=== PATIENT | female | born 1990 | race Caucasian/White ===

== ENCOUNTER 2021-04-15 17:47 | Emergency (ER) | payer OTHER, BC, SELFPAY ==
--- NOTE | ~2021-04-15 | CT_ITS ---
EXAMINATION: CT cervical spine wo con DATE: 04/15/2021 20:22 INDICATION: Neck pain TECHNIQUE: Computed tomography (CT) of the cervical spine was performed without intravenous contrast. The dose-length product (DLP) was 493.77 mGy-cm. Automated exposure control and iterative reconstruc tion technique were employed. COMPARISON: None FINDINGS: There is no fracture, dislocation, or subluxation. The vertebral body heights, alignment, a nd intervertebral disc spaces are normal. The paravertebral soft tissues are unremarkable. The odonto id is intact. IMPRESSION: 1. No acute osseous abnormality. Reviewed, dictated and finalized at location A.
--- NOTE | ~2021-04-15 | CT_ITS ---
EXAMINATION: CT lumbar spine wo con DATE: 04/15/2021 20:22 INDICATION: Low back pain TECHNIQUE: Computed tomography (CT) of the lumbar spine was performed without intravenous contrast. T he dose-length product (DLP) was 1191.46 mGy-cm. Iterative reconstruction was used. COMPARISON: None FINDINGS: . There is no fracture, dislocation, or subluxation. The vertebral body heights, alignment, and intervertebral disc spaces are normal. The paravertebral soft tissues are unremarkable. IMPRESSION: 1. No acute osseous abnormality. Reviewed, dictated and finalized at location A.
[2021-04-15 17:52] VITALS: BP 137/78; PULSE 94; RESP 18; TEMP 36.7; O2SAT 100
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
== END 2021-04-15 21:25 | disposition home or self-care (01) ==
PROVIDERS: Emergency Provider Emergency Medicine; PCP Internal Medicine
DX: S16.1XXA Strain of muscle, fascia and tendon at neck level, initial encounter (principal); V49.50XA Passenger injured in collision with unspecified motor vehicles in traffic accident, initial encounter
CPT/HCPCS: 72125; 72131; 81025; 99284

== ENCOUNTER 2021-10-11 00:59 | Inpatient (IN) | payer BC, SELFPAY ==
[2021-10-11] VITALS (14 sets, daily range): BP systolic 134–170; BP diastolic 73–90; PULSE 73–110; RESP 16–20; TEMP 36.2–36.6; O2SAT 95–99
--- NOTE | ~2021-10-11 | MR_ITS ---
EXAMINATION: MR MRCP wo/w con/w 3D wo ind DATE: 10/12/2021 12:56 INDICATION: Acute pancreatitis. TECHNIQUE: Magnetic resonance imaging (MRI) of the abdomen was performed without and with 20 mL Multi Miguel intravenous contrast. Sequences included coronal T2-weighted FS FSE, coronal T2-weighted FSE, a xial T1-weighted LAVA, coronal FS FIESTA, axial dual-echo T1-weighted SPGR, coronal lava-FLEX, sagitt al T2-weighted FSE, axial T2-weighted FSE, and axial DWI. Thick-slab T2-weighted FSE images were obta ined for magnetic resonance cholangiopancreatography (MRCP). Maximum intensity projection 3-D reconst ructions of the volumetric data were created by the technologist. Postcontrast sequences included cor onal LAVA-flex and time course of axial T1-weighted LAVA. COMPARISON: CT abdomen and pelvis 10/11/2021, ultrasound 10/11/2021 FINDINGS: ABDOMEN MRI: There are small pleural effusions. There is mild atelectasis in the lower lobes. The moreno er, gallbladder, and spleen are normal. The pancreas enhances throughout. There is fat stranding and free fluid around the pancreas, consistent with acute interstitial pancreatitis. There is a small vol ume of ascites. The adrenal glands and kidneys are normal. There are no dilated loops of bowel. There are no pathologically enlarged lymph nodes. There is subcutaneous edema in the body wall. ABDOMEN MRCP: The common duct is normal and measures 3 mm. No choledocholithiasis. IMPRESSION: 1. Acute interstitial pancreatitis. 2. No choledocholithiasis. 3. Small pleural effusions. 4. Small volume of ascites. Reviewed, dictated and finalized at location A. HANDLER
--- NOTE | ~2021-10-11 | US_ITS ---
EXAMINATION: US right upper quadrant DATE: 10/11/2021 08:13 INDICATION: Pancreatitis TECHNIQUE: Multiple grayscale and Doppler ultrasound images of the abdomen were obtained. COMPARISON: None available FINDINGS: Bowel gas obscures visualization of the pancreas. The visualized portions of the pancreas a re unremarkable. The liver is normal with normal echogenicity and echotexture. No surface nodularity. Normal hepatopetal flow in the main portal vein. The gallbladder is normal with no abnormal wall thi ckening, pericholecystic fluid or stones. The normal common bile duct measures 3 mm. There was no son ographic Ty sign. IMPRESSION: 1. Normal sonographic study of the gallbladder. Reviewed, dictated and finalized at location B. FACTURING SHIFT SUPERVISOR
--- NOTE | ~2021-10-11 | CT_ITS ---
EXAMINATION: CT abdomen pelvis w con DATE: 10/11/2021 04:01 INDICATION: Upper abdominal pain TECHNIQUE: Computed tomography (CT) of the abdomen and pelvis was performed with 100 cc Omnipaque 350 intravenous contrast. The dose-length product was 1577.74 mGy-cm. Automated exposure control and ite rative reconstruction technique were employed. COMPARISON: None. FINDINGS: Lung bases are unremarkable. Heart size normal. No significant pleural or pericardial effus ion. No significant vascular abnormality. No lymphadenopathy. There is thickening of the pancreas wit h surrounding fluid, consistent with pancreatitis. There is a 3 cm left adnexal cyst, likely ovarian. Nonobstructive bowel gas pattern. Normal appendix. No free air. Gallbladder is present. No lymphaden opathy. No acute osseous abnormality. IMPRESSION: 1. Acute pancreatitis with moderate peripancreatic fluid extending into the paracolic gutters. 2: 3 cm left adnexal cyst, likely ovarian. Reviewed, dictated and finalized at location A. L ASSEMBLER IMPRESSION: 1. Acute pancreatitis with moderate peripancreatic fluid extending into the par acolic gutters. 2: 3 cm left adnexal cyst, likely ovarian.
--- NOTE | 2021-10-11 02:27 | ED.GENADULT ---
HPI - General Adult General Chief complaint: Abdominal Pain Stated complaint: ABD pain, N/V Time Seen by Provider: 10/11/21 01:55 History of Present Illness HPI narrative: Patient is a 23-year-old female presents the emergency department with chief complaint of abdominal pain. Patient reports started having pain in the right upper quadrant reports that the pain does radiate mildly to the back reports is not improved by anything reports has had some nausea and vomiting with it as well. Patient reports she had no prior surgical history of the abdomen reports she did not eat anything different denies fever denies diarrhea. Related Data Home Medications Medication Instructions Recorded Confirmed bupropion HCl mg PO 10/11/21 10/11/21 cyclobenzaprine mg 10/11/21 escitalopram oxalate mg 10/11/21 Allergies Allergy/AdvReac Type Severity Reaction Status Date / Time Penicillins Allergy Intermediate Verified 03/23/10 22:36 Review of Systems Review of Systems: A 10 system review of systems was completed on the patient and is negative except for what is stated in the HPI. Nursing and ancillary documentation was reviewed. [facility] Past Medical History Medical History No active medical problems Social History Social History Substance use: never Gender identity (if verbalized by the patient): Female Exam Narrative: GENERAL: Well-appearing, well-nourished, and in no acute distress. HEAD: Normocephalic, atraumatic. EYES: PERRLA and EOMI. ENT: Nares clear, no rhinorrhea or epistaxis. Mucous membranes moist. NECK: Supple. CHEST: Clear to auscultation. No respiratory distress. HEART: Regular rate and rhythm. No murmur heard. Normal peripheral pulses. ABDOMEN: Soft, tender to palpation of the right upper quadrant, nondistended, normal active bowel sounds. EXTREMITIES: Normal range of motion. No edema. SKIN: Warm, dry, no rash. NEURO: No focal deficits. Alert and oriented x3. PSYCH: Normal mood and affect. Course Vital Signs Vital signs: Vital Signs Temperature 36.6 C 10/11/21 01:43 Pulse Rate 73 10/11/21 01:43 Respiratory Rate 18 10/11/21 01:43 Blood Pressure 165/89 H 11/12/21 01:43 Pulse Oximetry 97 10/11/21 01:43 Temperature 36.6 C 10/11/21 01:43 Pulse Rate 80 10/11/21 06:15 Respiratory Rate 18 10/11/21 06:15 Blood Pressure 153/78 H 10/11/21 06:15 Pulse Oximetry 98 10/11/21 06:15 Medical Decision Making Vital Signs Vital Signs: Vital Signs Temperature 36.6 C 10/11/21 01:43 Pulse Rate 73 10/11/21 01:43 Respiratory Rate 18 10/11/21 01:43 Blood Pressure 165/89 H 10/11/21 01:43 Pulse Oximetry 97 10/11/21 01:43 Temperature 36.6 C 10/11/21 01:43 Pulse Rate 80 10/11/21 06:15 Respiratory Rate 18 10/11/21 06:15 Blood Pressure 153/78 H 10/11/21 06:15 Pulse Oximetry 98 10/11/21 06:15 Lab Data Result diagrams: 10/11/21 03:00 10/11/21 03:00 Labs: Lab Results 10/11/21 10/11/21 10/11/21 Range/Units 03:00 03:00 03:44 WBC 16.2 H (4.5-10.0) K/mm3 RBC 5.05 (4.2-5.4) M/mm3 Hgb 14.0 (12.0-15.0) g/dL Hct 43.0 (37.0-47.0) % MCV 85.1 (80-100) fl MCH 27.7 (26-34) pg MCHC 32.6 (32-36) g/dl RDW 14.4 (11.5-14.5) % Plt Count 234 (150-375) k/mm3 MPV 11.6 H (7.4-10.4) fl Immature Gran % (Auto) 0.5 (0-0.5) % Neut % (Auto) 89.4 H (45.5-73.1) % Lymph % (Auto) 4.8 L (18.3-44.2) % [place] % (Auto) 5.0 (2.6-8.5) % Eos % (Auto) 0.1 (0-4.4) % Baso % (Auto) 0.2 (0.2-1.2) % Lymph # (Auto) 0.78 L (0.9-3.2) K/mm3 [place] # (Auto) 0.8 H (0.1-0.6) K/mm3 Eos # (Auto) 0.0 (0-0.3) K/mm3 Baso # (Auto) 0.0 (0.0-0.1) K/mm3 Abs Immat Gran (auto) 0.08 H (0.00-0.031) K/mm3 Absolute Neuts (auto) 14.5 H (1.3-6.7) K/mm
[2021-10-11] MEDS: SODIUM CHLORIDE 0.9% IV 1,000 ML 999 ML IV CONT (02:47)
[2021-10-11] MEDS: ONDANSETRON INJ 4 MG/2 ML VIAL IV PUSH ×5 (02:49→17:29)
[2021-10-11] MEDS: MORPHINE SULFATE (*CRX) 4 MG/ML INJ IV PUSH (02:51)
--- NOTE | 2021-10-11 03:02 | PC.NURSE ---
Pt unable to urinate at this time. Refusing straight catheter at this time. Urine cup at bedside.
[2021-10-11 03:27] LABS: Alanine Aminotransferase 231 U/L (4-35); Albumin Level 4.5 g/dL (3.5-5.1); Alkaline Phosphatase 117 U/L (38-126); Anion Gap 6 mmol/L (8-16); Aspartate Amino Transferase 281 U/L (14-36); Bilirubin,Total 0.7 mg/dL (0.2-1.3); Blood Urea Nitrogen 15 mg/dL (7-17); Calcium 9.1 mg/dL (8.4-10.2); Carbon Dioxide 28 mmol/L (22-30); Chloride 102 mmol/L (98-107); Estimated CRCL calculation 141 ml/min; Estimated Glomerular Filt Rate > 60; Glucose 183 mg/dL (65-110); Potassium 4.3 mmol/L (3.4-5.0); Sodium 136 mmol/L (137-145)
[2021-10-11] MEDS: HYDROmorphone HCL INJ (*CRX) 1 MG/ML SYR IV PUSH ×7 (03:39→22:42)
--- NOTE | 2021-10-11 03:47 | PC.NURSE ---
Pt to imaging at this time.
[2021-10-11 03:59] LABS: Add Urine Microscopic? YES; Appearance Urine Cloudy (Clear); Bilirubin Urine Negative (Negative); Blood Urine Negative (Negative); Color Urine Amber (Yellow); Glucose Urine UA Negative (Negative); Ketones Urine 1+ mg/dL (Negative); Leukocyte Esterase Ur 3+ LEU/UL (Negative); Mucus Urine Rare /lpf; Nitrate Urine Negative (Negative); Protein Urine 1+ mg/dL (Negative); Specific Grav Ur 1.019 (1.001-1.035); Squamous Epithelial Cell Urine Few /hpf (Few); Urobilinogen Urine Negative mg/dL (<2.0)
[2021-10-11 04:13] LABS: Basophils Percent Auto 0.2 % (0.2-1.2); Eosinophils Percent Auto 0.1 % (0-4.4); Immature Granulocyte Absolute 0.08 K/mm3 (0.00-0.031); Immature Granulocyte Percent A 0.5 % (0-0.5); Lymphocytes Absolute Auto 0.78 K/mm3 (0.9-3.2); Lymphocytes Percent Auto 4.8 % (18.3-44.2); Mean Corpuscular HGB Conc 32.6 g/dl (32-36); Mean Corpuscular Hemoglobin 27.7 pg (26-34); Mean Corpuscular Volume 85.1 fl (80-100); Mean Platelet Volume 11.6 fl (7.4-10.4); Monocytes Absolute Auto 0.8 K/mm3 (0.1-0.6); Neutrophils Absolute Auto 14.5 K/mm3 (1.3-6.7); Neutrophils Percent Auto 89.4 % (45.5-73.1); Platelet Count Result 234 k/mm3 (150-375); Red Blood Count 5.05 M/mm3 (4.2-5.4); Red Cell Distribution Width 14.4 % (11.5-14.5); White Blood Count 16.2 K/mm3 (4.5-10.0)
[2021-10-11 04:25] LABS: Lipase 31996 U/L (23-300)
[2021-10-11] MEDS: SODIUM CHLORIDE 0.9% IV 1,000 ML 125 ML IV CONT ×3 (07:04→23:00)
--- NOTE | 2021-10-11 07:19 | PM.IMHP ---
H&P: HPI History of Present Illness Date/Time: 10/11/21 07:19 This is a 23-year-old female without any significant prior medical history who presents the emergency department with chief complaint of abdominal pain. The patient was in her usual state of health until yesterday evening. She experienced 9-10 episode of vomiting, food at 1st, followed by bilious vomiting. Toward the end she had a few speckles of blood. She also endorses right upper quadrant pain radiating to the back reports is not improved by anything reports has had some nausea and vomiting with it as well. She denies nathan blood in the vomitus. Patient reports she had no prior surgical history of the abdomen reports she did not eat anything different denies fever denies diarrhea. On arrival to the emergency department the patient is hemodynamically stable and afebrile with the following vital Signs a temperature of 98.0? F, a pulse rate of 94, respiratory rate of 18, blood pressure 137/78, and pulse oximetry of 100% on room air. She was started on NPO, IV fluids and morphine 4 mg IV without significant improvement of her pain. She was switched to Dilaudid 1 mg IV q.4 with improvement. At the time of my my examination she rates her pain at 3/10. She denies any alcohol use. There is no history of gallstones. There is no family history of pancreatitis. Chief Complaint: Right upper quadrant pain, nausea and vomiting. Review of Systems Review of Systems: All systems reviewed & are unremarkable except as noted in HPI and below Constitutional: Constitutional: Reports as per HPI Eyes: Eyes: Reports as per HPI Cardiovascular: Cardiovascular: Reports as per HPI Respiratory: Respiratory: Reports as per HPI Gastrointestinal: Gastrointestinal: Reports as per HPI, Reports abdominal pain, Denies diarrhea, Reports nausea and Reports vomiting Comments: right upper quadrant pain Genitourinary: Genitourinary: Reports no additional female genitourinary complaints and Reports as per HPI Musculoskeletal: Musculoskeletal: Reports no additional musculoskeletal complaints and Reports as per HPI Integumentary/Breasts: Skin/Breast: Reports system reviewed and no additional complaints, except as docu and Reports as per HPI Neurologic: Reports system reviewed and no additional complaints, except as documented and Reports as per HPI Psychiatric: Psychiatric: Reports no additional psychiatric complaints and Reports as per HPI [facility] Past Medical History Medical History No active medical problems Social History Social History Smoking status: Never smoker Alcohol intake: current Drinks per week: 1 Substance use: current Substance use type: does not use Gender identity (if verbalized by the patient): Female Spiritual care concerns: No Meds Home Medications and Allergies Home Medications Medication Instructions Recorded Confirmed Type bupropion HCl 150 mg PO DAILY 10/11/21 10/11/21 History escitalopram oxalate 10 mg PO HS 10/11/21 10/11/21 History spironolactone 50 mg PO HS 10/11/21 10/11/21 History Allergies Allergy/AdvReac Type Severity Reaction Status Date / Time Penicillins Allergy Intermediate Verified 03/23/10 22:36 Vital Signs Vital Signs - 24 hr 10/11/21 01:43 10/11/21 02:56 10/11/21 04:06 Temperature 97.8 F Pulse Rate 73 83 87 Respiratory Rate 18 18 17 Blood Pressure 165/89 H 151/80 H 161/81 H Pulse Oximetry 97 99 98 10/11/21 05:00 10/11/21 05:45 10/11/21 06:15 Temperature Pulse Rate 76 79 80 Respiratory Rate 18 16 18 Blood Pressure 170/83 H 152/73 H 153/78 H Pulse Oximetry 97 97 98 Exam Const: Other: Patient is in mild distress due to right upper quadrant pain. She seems uncomfortable. HENMT: Mouth: Yes moist mucous membranes Eyes: General: appearance normal, both eyes and all related structures Pupils: Equal, r
--- NOTE | 2021-10-11 07:49 | PC.NURSE ---
Gave report to Chanel LIRA no further questions or concerns
--- NOTE | 2021-10-11 07:57 | PC.NURSE ---
pt going to ultrasound will take up to 326 when done
--- NOTE | 2021-10-11 08:14 | PC.NURSE ---
Called and asked nickie Pringle to transport patient to 3rd floor after ultrasound, ultrasound refused, this RN will transport when patient returns
--- NOTE | 2021-10-11 08:35 | PC.NURSE ---
This patient, Hortencia Ruiz, was admitted to [facility] Surg Room 326-01. Patient/family oriented to hospital policies and general routines including ID bracelet, bed and alarms, visiting hours, pain management, procedures, bathroom and other care routines, personal items, smoking policy, room service/diet, and visiting hours. Information on how to activate the Rapid Response Team has been discussed. Patient/Family are encouraged to report perceived risks to care and to ask questions if they do not understand what they are told or what they should do.
[2021-10-11 09:51] LABS: Lipase 10133 U/L (23-300)
[2021-10-11 14:25] LABS: Lipase 7027 U/L (23-300)
[2021-10-11 14:51] LABS: Triglycerides 55 mg/dL (<150)
[2021-10-11 15:08] LABS: Amylase 1339 U/L (30-110)
[2021-10-11 16:55] LABS: Hemoglobin A1C 5.1 % (<5.7)
[2021-10-11 20:37] LABS: Hematocrit 43.2 % (37.0-47.0); Hemoglobin 13.9 g/dL (12.0-15.0); Mean Corpuscular HGB Conc 32.2 g/dl (32-36); Mean Corpuscular Hemoglobin 27.8 pg (26-34); Mean Corpuscular Volume 86.4 fl (80-100); Mean Platelet Volume 10.4 fl (7.4-10.4); Platelet Count Result 185 k/mm3 (150-375); Red Cell Distribution Width 14.6 % (11.5-14.5); White Blood Count 19.4 K/mm3 (4.5-10.0)
[2021-10-11 23:57] LABS: Anion Gap 8 mmol/L (8-16); Blood Urea Nitrogen 13 mg/dL (7-17); Calcium 8.4 mg/dL (8.4-10.2); Carbon Dioxide 27 mmol/L (22-30); Chloride 105 mmol/L (98-107); Estimated CRCL calculation 159 ml/min; Estimated Glomerular Filt Rate > 60; Glucose 115 mg/dL (65-110); Potassium 3.9 mmol/L (3.4-5.0); Sodium 140 mmol/L (137-145)
[2021-10-12] MEDS: HYDROmorphone HCL INJ (*CRX) 1 MG/ML SYR IV PUSH ×2 (01:41→20:27)
[2021-10-12] MEDS: HYDROmorphone HCL INJ (*CRX) 1 MG/ML SYR 2 MG IV PUSH ×4 (05:00→15:11)
[2021-10-12 05:47] VITALS: BP 126/66; PULSE 105; RESP 18; TEMP 36.8; O2SAT 93
[2021-10-12] MEDS: SODIUM CHLORIDE 0.9% IV 1,000 ML 125 ML IV CONT ×3 (06:22→23:18)
[2021-10-12 06:34] LABS: Hematocrit 39.4 % (37.0-47.0); Hemoglobin 12.3 g/dL (12.0-15.0); Mean Corpuscular HGB Conc 31.2 g/dl (32-36); Mean Corpuscular Hemoglobin 27.3 pg (26-34); Mean Corpuscular Volume 87.6 fl (80-100); Mean Platelet Volume 10.5 fl (7.4-10.4); Platelet Count Result 226 k/mm3 (150-375); Red Cell Distribution Width 14.7 % (11.5-14.5)
[2021-10-12 07:12] LABS: Amylase 660 U/L (30-110); Anion Gap 10 mmol/L (8-16); Blood Urea Nitrogen 14 mg/dL (7-17); Calcium 8.1 mg/dL (8.4-10.2); Carbon Dioxide 22 mmol/L (22-30); Chloride 107 mmol/L (98-107); Estimated CRCL calculation 183 ml/min; Estimated Glomerular Filt Rate > 60; Glucose 109 mg/dL (65-110); Potassium 3.9 mmol/L (3.4-5.0); Sodium 139 mmol/L (137-145)
[2021-10-12 07:30] LABS: Lipase 2545 U/L (23-300)
--- NOTE | 2021-10-12 11:04 | WPDGICN ---
Assessment and Plan Assessment and plan (1) Acute pancreatitis: Qualifiers: Acute pancreatitis complication: unspecified Pancreatitis type: unspecified pancreatitis type Qualified Code(s): K85.90 - Acute pancreatitis without necrosis or infection, unspecified Code(s): K85.90 - Acute pancreatitis without necrosis or infection, unspecified Status: Acute Assessment and Plan: no alcohol use, no previous history of GB disease with normal appearing ultrasound. will get MRP to check biliary system, microlithiasis she started using a new medication just few days ago- bupropion. Review of literature with few cases of pancreatitis but uncommon. continue with npo status, pain control and medical support (2) Nausea and vomiting in adult: Code(s): R11.2 - Nausea with vomiting, unspecified Status: Acute Assessment and Plan: antiemetics prn (3) Epigastric pain: Code(s): R10.13 - Epigastric pain Status: Acute Assessment and Plan: pain control (4) Elevated liver enzymes: Code(s): R74.8 - Abnormal levels of other serum enzymes Status: Acute Assessment and Plan: monitor check hepatitis panel probably from pancreatitis (5) Morbid (severe) obesity due to excess calories: Code(s): E66.01 - Morbid (severe) obesity due to excess calories Status: Acute (6) Anxiety: Code(s): F41.9 - Anxiety disorder, unspecified Status: Acute (7) Acne: Code(s): L70.9 - Acne, unspecified Status: Acute GI Consult Note Consult date/time: 10/12/21 11:04 Reason for consult: acute pancreatitis HPI: Hortencia Ruiz is a 31 year old female with history of anxity recently started on bupropion last Thursday, morbid obesity here with new onset of severe epigastric pain along with intractable nausea and vomiting. Never had similar episode and denies heavy drinking. Blood work in ER showed transaminases 200's, normal bili and AP. Diagnosed with pancreatitis with elevated enzymes. CT scan reviewed and showed acute pancreatitis with moderate peripancreatic fluid extending into the paracolic gutters. Ultrasound normal GB. Denies abdominal surgeries. She is npo, slightly better, on pain meds as needed. Review of Systems Constitutional: Constitutional: Denies chills Eyes: Eyes: Denies blurry vision ENT: Reports Normal hearing present Cardiovascular: Cardiovascular: Denies chest pain Respiratory: Respiratory: Denies dyspnea Gastrointestinal: Gastrointestinal: Reports abdominal pain, Reports nausea and Reports vomiting Genitourinary: Genitourinary: Denies hematuria Musculoskeletal: Musculoskeletal: Denies neck pain Integumentary/Breasts: Skin/Breast: Denies dry skin Neurologic: Denies headache(s) Psychiatric: Psychiatric: Denies behavioral changes [facility] Past Medical History Medical History (Updated 10/12/21 @ 11:12 by Carlo Barrett MD) Elevated liver enzymes Epigastric pain Morbid (severe) obesity due to excess calories Nausea and vomiting in adult No active medical problems Social History Social History Smoking status: Never smoker Alcohol intake: current Drinks per week: 1 Substance use: current Substance use type: does not use Gender identity (if verbalized by the patient): Female Spiritual care concerns: No Meds Home Medications and Allergies Home Medications Medication Instructions Recorded Confirmed Type bupropion HCl 150 mg PO DAILY 10/11/21 10/11/21 History escitalopram oxalate 10 mg PO HS 10/11/21 10/11/21 History spironolactone 50 mg PO HS 10/11/21 10/11/21 History Allergies Allergy/AdvReac Type Severity Reaction Status Date / Time Penicillins Allergy Intermediate Verified 03/23/10 22:36 Vital Signs Vital Signs - 24 hr 10/11/21 14:00 10/11/21 19:50 10/11/21 21:19 Temperature 97.9 F Pulse Rate 93 110 H 82 Resp
--- NOTE | 2021-10-12 11:31 | PM.IMPN ---
Progress Note: A&P Assessment and Plan (1) Acute pancreatitis: Qualifiers: Acute pancreatitis complication: unspecified Pancreatitis type: unspecified pancreatitis type Qualified Code(s): K85.90 - Acute pancreatitis without necrosis or infection, unspecified Code(s): K85.90 - Acute pancreatitis without necrosis or infection, unspecified Status: Acute Assessment and Plan: -Patient without family history of pancreatitis, gallstones or EtOH use presenting with severe right upper quadrant abdominal pain. -Lipase significantly elevated on arrival close to 32,000. Repeat lipase 5 hours later was 10,000. Repeat today 2545. -RUQ US normal -Patient was appropriately managed by NPO, IV fluids and pain management -Gastroenterology Dr. Kirkland was consulted and has ordered an MRCP to evaluate biliary system. -It is also noted that patient just started taking Wellbutrin this week, review of literature with a few cases of pancreatitis but uncommon. -Further management per GI. (2) Overweight: Code(s): E66.3 - Overweight Status: Acute Assessment and Plan: Calorie restriction diet and exercise. (3) Anxiety: Code(s): F41.9 - Anxiety disorder, unspecified Status: Acute Assessment and Plan: Resume home medication. (4) Depression: Code(s): F32.A - Depression, unspecified Status: Acute Assessment and Plan: Resume home medication. (5) Acne: Code(s): L70.9 - Acne, unspecified Status: Acute Assessment and Plan: Previously on spironolactone. Resume upon discharge. Subjective Date/time seen: 10/12/21 11:31 This is a 23-year-old female with hx of anxiety and depression who presented to the ED for acute onset epigastric pain, N/V and was subsequently admitted for pancreatitis. No hx of ETOH use, gallstone disease, or family hx of pancreatitis. Interval history: Pt states she is feeling better today but still having pain. She has 3/10 epigastric pain at rest and 9/10 with movement. She c/o pain to her sides and back from vomiting so forcefully yesterday. Nausea and vomiting have resolved. No diarrhea, constipation. States she felt warm early this morning but when they took her temperature it was normal. Review of Systems Review of Systems: General: +subjective fever, +bodyaches Eyes: Denies vision changes or eye pain ENT: Denies nasal congestion or sore throat Respiratory: Denies cough or shortness of breath Cardiovascular: Denies chest pain, palpitations, or lower extremity edema Gastrointestinal: + abdominal pain, no nausea or vomiting, no diarrhea Genitourinary: Denies dysuria or urinary frequency Musculoskeletal: + back pain, + muscle aches Neurological: Denies headache, paraesthesias, or motor weakness Integumentary: Denies rash or other skin lesions Exam Narrative: General: No acute distress, non toxic appearing, morbidly obese Eyes: PERRL, no scleral icterus HEENT: NCAT, external ears normal, MMM, normal pharynx Respiratory: No respiratory distress, Lungs CTA bilaterally, no wheezing Cardiovascular: RRR, no murmur Abdominal: Soft, +moderate epigastric tenderness, non distended, no rebound or guarding Musculoskeletal: Moves all 4 extremities, no edema Neurological: A/Ox3, speech normal, no facial asymmetry Skin: Warm, dry, no rashes Psychiatric: Normal affect, normal mood Objective Data Vital Signs Vital Signs: Vital Signs - 24 hr 10/11/21 14:00 10/11/21 19:50 10/11/21 21:19 Temperature 97.9 F Pulse Rate 93 110 H 82 Respiratory Rate 18 16 18 Blood Pressure 142/88 H Pulse Oximetry 96 98 96 10/11/21 22:00 10/12/21 05:47 Temperature 97.1 F L 98.3 F Pulse Rate 110 H 105 H Respiratory Rate 16 18 Blood Pressure 138/78 126/66 Pulse Oximetry 98 93 Intake/Output Intake/Output: Intake & Output 10/09/21 10/10/21 10/11/21 10/12/21 23:59 23:59 23:59 23:59 Intake Total 3
--- NOTE | 2021-10-12 12:01 | PC.NURSE ---
patient to [facility] via wheelchair
--- NOTE | 2021-10-12 12:57 | PC.NURSE ---
patient returning to floor from MRI
[2021-10-12 14:16] VITALS: BP 123/72; PULSE 104; RESP 12; TEMP 36.9; O2SAT 92
[2021-10-12] MEDS: MORPHINE SULFATE (*CRX) 4 MG/ML INJ IV PUSH (18:42)
[2021-10-12 20:00] VITALS: PULSE 108; RESP 20; O2SAT 90
[2021-10-12] MEDS: ESCITALOPRAM OXALATE 10 MG TABLET PO (20:22)
[2021-10-12 21:41] VITALS: BP 123/72; PULSE 108; RESP 20; TEMP 37.2; O2SAT 90
[2021-10-13] MEDS: HYDROmorphone HCL INJ (*CRX) 1 MG/ML SYR IV PUSH ×5 (01:51→20:23)
[2021-10-13 05:29] VITALS: BP 127/72; PULSE 103; RESP 20; TEMP 37.3; O2SAT 94
[2021-10-13] MEDS: HYDROmorphone HCL INJ (*CRX) 1 MG/ML SYR 2 MG IV PUSH (05:35)
[2021-10-13 06:32] LABS: Alanine Aminotransferase 79 U/L (4-35); Albumin Level 3.2 g/dL (3.5-5.1); Alkaline Phosphatase 67 U/L (38-126); Amylase 299 U/L (30-110); Anion Gap 7 mmol/L (8-16); Aspartate Amino Transferase 30 U/L (14-36); Bilirubin,Total 0.4 mg/dL (0.2-1.3); Blood Urea Nitrogen 12 mg/dL (7-17); Calcium 7.8 mg/dL (8.4-10.2); Carbon Dioxide 25 mmol/L (22-30); Chloride 103 mmol/L (98-107); Estimated CRCL calculation 159 ml/min; Estimated Glomerular Filt Rate > 60; Glucose 97 mg/dL (65-110); Lipase 803 U/L (23-300); Potassium 3.5 mmol/L (3.4-5.0); Sodium 135 mmol/L (137-145)
[2021-10-13 07:03] LABS: Basophils Absolute Auto 0.1 K/mm3 (0.0-0.1); Basophils Percent Auto 0.3 % (0.2-1.2); Eosinophils Absolute Auto 0.1 K/mm3 (0-0.3); Eosinophils Percent Auto 0.5 % (0-4.4); Hemoglobin 10.7 g/dL (12.0-15.0); Immature Granulocyte Absolute 0.08 K/mm3 (0.00-0.031); Immature Granulocyte Percent A 0.5 % (0-0.5); Lymphocytes Percent Auto 11.2 % (18.3-44.2); Mean Corpuscular HGB Conc 31.5 g/dl (32-36); Mean Corpuscular Hemoglobin 27.2 pg (26-34); Mean Corpuscular Volume 86.5 fl (80-100); Monocytes Absolute Auto 1.3 K/mm3 (0.1-0.6); Monocytes Percent Auto 8.3 % (2.6-8.5); Neutrophils Percent Auto 79.2 % (45.5-73.1); Platelet Count Result 190 k/mm3 (150-375); Red Blood Count 3.93 M/mm3 (4.2-5.4); Red Cell Distribution Width 14.6 % (11.5-14.5); White Blood Count 15.1 K/mm3 (4.5-10.0)
[2021-10-13] MEDS: SODIUM CHLORIDE 0.9% IV 1,000 ML 125 ML IV CONT (07:22)
[2021-10-13 07:34] LABS: Hepatitis B Surface Antigen Negative (Negative)
[2021-10-13 07:39] LABS: HAV RESULT Negative (Negative); Hepatitis B Core IgM Result Negative (Negative)
[2021-10-13 07:51] LABS: Hepatitis C Virus Antibody Negative (Negative)
--- NOTE | 2021-10-13 10:10 | WPDGIPROGNO ---
Progress Note: A&P Assessment and Plan (1) Acute pancreatitis: Qualifiers: Acute pancreatitis complication: unspecified Pancreatitis type: unspecified pancreatitis type Qualified Code(s): K85.90 - Acute pancreatitis without necrosis or infection, unspecified Code(s): K85.90 - Acute pancreatitis without necrosis or infection, unspecified Status: Acute Assessment and Plan: no clear etiology (no heavy etoh use, no GB disease and had normal MRCP, also normal TG level) wonder if could have been related to new medication that started few days ago- bupropion and advised not to take it anymore liquid diet for now and pain control (2) Elevated liver enzymes: Code(s): R74.8 - Abnormal levels of other serum enzymes Status: Acute Assessment and Plan: trending down, from pancreatitis MRCP reviewed (3) Epigastric pain: Code(s): R10.13 - Epigastric pain Status: Acute (4) Nausea and vomiting in adult: Code(s): R11.2 - Nausea with vomiting, unspecified Status: Acute Assessment and Plan: antiemetics prn (5) Morbid (severe) obesity due to excess calories: Code(s): E66.01 - Morbid (severe) obesity due to excess calories Status: Acute (6) Anxiety: Code(s): F41.9 - Anxiety disorder, unspecified Status: Acute Subjective Date/time seen: 10/13/21 10:10 Interval history: earlier still had abdominal pain, now she is comfortable. Only on liquid diet. Review of Systems Review of Systems: All systems reviewed & are unremarkable except as noted in HPI and below Exam Const: General: no acute distress Nutritional Appearance: obese HENMT: General nose exam: Normal nares present Eyes: General: appearance normal, both eyes and all related structures Neck: Neck: supple Resp: Auscultation: clear to auscultation bilaterally Cardio: Rate: regular rate GI: Inspection: non-distended GI Palp: Yes Soft to palpation and Yes Tenderness to palpation present (GI) (mild ttp in epigastric, no rebound) Auscultation: normal bowel sounds Skin: General skin exam: normal color Neuro: Speech: normal speech Motor exam (neuro): Normal motor muscle tone present throughout Extrem: General: normal to inspection Psych: Mental Status: mental status grossly normal Objective Data Vital Signs Vital Signs: Vital Signs - 24 hr 10/12/21 14:16 10/12/21 20:00 10/12/21 21:41 Temperature 98.4 F 99.0 F Pulse Rate 104 H 108 H 108 H Respiratory Rate 12 20 20 Blood Pressure 123/72 123/72 Pulse Oximetry 92 90 90 10/13/21 05:29 Temperature 99.2 F Pulse Rate 103 H Respiratory Rate 20 Blood Pressure 127/72 Pulse Oximetry 94 Intake/Output Intake/Output: Intake & Output 10/10/21 10/11/21 10/12/21 10/13/21 23:59 23:59 23:59 23:59 Intake Total 3000 3480 1730 Balance 3000 3480 1730 Meds/Results Medications: Active Medications Generic Name Dose Route Start Last Admin Trade Name Freq PRN Reason Stop Dose Admin Escitalopram Oxalate 10 mg 10/12/21 21:00 10/12/21 20:22 Escitalopram Oxalate 10 Mg Tablet PO 10 mg HS ZONIA Administration Hydromorphone HCl 1 mg 10/12/21 15:22 10/13/21 01:51 Hydromorphone Hcl Inj (*Crx) 1 Mg/Ml Syr IV PUSH 1 mg Q3H PRN Administration Pain Rated 7-9 Hydromorphone HCl 2 mg 10/12/21 15:23 10/13/21 05:35 Hydromorphone Hcl Inj (*Crx) 1 Mg/Ml Syr IV PUSH 2 mg Q3H PRN Administration Pain Rated 10/10 Sodium Chloride 1,000 mls @ 125 mls/hr 10/11/21 06:50 10/13/21 07:22 Normal Saline Iv IV CONT 125 mls/hr .Q8H ZONIA Administration Morphine Sulfate 4 mg 10/12/21 15:23 10/12/21 18:42 Morphine Sulfate (*Crx) 4 Mg/Ml Inj IV PUSH 4 mg Q4H PRN Administration Pain Rated 4-6 Ondansetron HCl 4 mg 10/11/21 06:50 10/11/21 17:29 Ondansetron Inj 4 Mg/2 Ml Vial IV PUSH 4 mg Q4H PRN Administration Nausea Radiology Results: ITS Impressions
--- NOTE | 2021-10-13 13:20 | PM.IMPN ---
Progress Note: A&P Assessment and Plan (1) Acute pancreatitis: Qualifiers: Acute pancreatitis complication: unspecified Pancreatitis type: unspecified pancreatitis type Qualified Code(s): K85.90 - Acute pancreatitis without necrosis or infection, unspecified Code(s): K85.90 - Acute pancreatitis without necrosis or infection, unspecified Status: Acute Assessment and Plan: -Patient without family history of pancreatitis, gallstones or EtOH use presenting with severe right upper quadrant abdominal pain. -Lipase significantly elevated on arrival close to 32,000. Repeat lipase 5 hours later was 10,000. Repeat today 803. -RUQ US normal -Patient was appropriately managed by NPO, IV fluids and pain management -Gastroenterology Dr. Kirkland was consulted and has ordered an MRCP to evaluate biliary system which showed no microlithiasis. -It is also noted that patient just started taking Wellbutrin this week, review of literature with a few cases of pancreatitis but uncommon. Will discontinue this and have her follow up with pcp for different anxiety/depression medication options. -Transitioned to full liquid diet so discontinue IVF, continue pain control and wean down when appropriate -Further management per GI (2) Overweight: Code(s): E66.3 - Overweight Status: Acute Assessment and Plan: Calorie restriction diet and exercise. (3) Anxiety: Code(s): F41.9 - Anxiety disorder, unspecified Status: Acute Assessment and Plan: Continue Lexapro. Discontinue Wellbutrin as above. (4) Depression: Code(s): F32.A - Depression, unspecified Status: Acute Assessment and Plan: Continue Lexapro. Discontinue Wellbutrin as above. (5) Acne: Code(s): L70.9 - Acne, unspecified Status: Acute Assessment and Plan: Previously on spironolactone. Resume upon discharge. Subjective Date/time seen: 10/13/21 13:20 Interval history: This is a 23-year-old female with hx of anxiety and depression who presented to the ED for acute onset epigastric pain, N/V and was subsequently admitted for pancreatitis. No hx of ETOH use, gallstone disease, or family hx of pancreatitis. Today she states she is feeling better, still having quite a bit of pain which she rates as 6/7 currently but was 10/10 this morning. She is currently on full liquid diet. No nausea or vomiting. States she felt warm/achey last night but did not have a fever when they took her temperature. She also notes decreased urination and dark colored urine. No dysuria. Review of Systems Review of Systems: General: +subjective fever, +bodyaches Eyes: Denies vision changes or eye pain ENT: Denies nasal congestion or sore throat Respiratory: Denies cough or shortness of breath Cardiovascular: Denies chest pain, palpitations, or lower extremity edema Gastrointestinal: + abdominal pain, no nausea or vomiting, no diarrhea Genitourinary: Denies dysuria, decreased urination, +dark urine Musculoskeletal: + back pain, + muscle aches Neurological: Denies headache, paraesthesias, or motor weakness Integumentary: Denies rash or other skin lesions Exam Narrative: General: No acute distress, non toxic appearing, morbidly obese Eyes: PERRL, no scleral icterus HEENT: NCAT, external ears normal, MMM, normal pharynx Respiratory: No respiratory distress, Lungs CTA bilaterally, no wheezing Cardiovascular: RRR, no murmur Abdominal: Soft, +moderate epigastric tenderness, non distended, no rebound or guarding Musculoskeletal: Moves all 4 extremities, no edema Neurological: A/Ox3, speech normal, no facial asymmetry Skin: Warm, dry, no rashes Psychiatric: Normal affect, normal mood Objective Data Vital Signs Vital Signs: Vital Signs - 24 hr 10/12/21 14:16 10/12/21 20:00 10/12/21 21:41 Temperature 98.4 F 99.0 F Pulse Rate 104 H 108 H 108 H Respiratory Rate 12 20 20 Blood
[2021-10-13 14:27] VITALS: BP 132/66; PULSE 98; RESP 18; TEMP 37.1; O2SAT 94
[2021-10-13 16:48] LABS: Add Urine Microscopic? YES; Appearance Urine Clear (Clear); Bacteria Urine Trace /hpf; Bilirubin Urine Negative (Negative); Blood Urine Negative (Negative); Color Urine Yellow (Yellow); Glucose Urine UA Negative (Negative); Ketones Urine 1+ mg/dL (Negative); Leukocyte Esterase Ur Trace LEU/UL (Negative); Mucus Urine Rare /lpf; Nitrate Urine Negative (Negative); Protein Urine Negative (Negative); Specific Grav Ur 1.014 (1.001-1.035); Squamous Epithelial Cell Urine Occasional /hpf (Few); Urobilinogen Urine Negative mg/dL (<2.0); WBC Urine 0-3 /hpf
[2021-10-13 20:00] VITALS: PULSE 100; RESP 20; O2SAT 94
[2021-10-13 20:19] VITALS: PULSE 100; RESP 20; O2SAT 94
[2021-10-13] MEDS: ESCITALOPRAM OXALATE 10 MG TABLET PO (20:20)
[2021-10-13 22:00] VITALS: BP 128/54; PULSE 96; RESP 18; TEMP 36.6; O2SAT 94
[2021-10-14] MEDS: HYDROmorphone HCL INJ (*CRX) 1 MG/ML SYR 2 MG IV PUSH (00:15)
[2021-10-14] MEDS: HYDROmorphone HCL INJ (*CRX) 1 MG/ML SYR IV PUSH (05:46)
[2021-10-14 06:00] VITALS: BP 119/51; PULSE 99; RESP 18; TEMP 36.6; O2SAT 96
[2021-10-14 06:51] LABS: Hematocrit 32.4 % (37.0-47.0); Hemoglobin 10.4 g/dL (12.0-15.0); Mean Corpuscular HGB Conc 32.1 g/dl (32-36); Mean Corpuscular Hemoglobin 27.5 pg (26-34); Mean Corpuscular Volume 85.7 fl (80-100); Mean Platelet Volume 10.1 fl (7.4-10.4); Platelet Count Result 185 k/mm3 (150-375); Red Blood Count 3.78 M/mm3 (4.2-5.4); Red Cell Distribution Width 14.4 % (11.5-14.5); White Blood Count 12.9 K/mm3 (4.5-10.0)
[2021-10-14 07:15] LABS: Alanine Aminotransferase 60 U/L (4-35); Albumin Level 3.2 g/dL (3.5-5.1); Alkaline Phosphatase 69 U/L (38-126); Amylase 143 U/L (30-110); Anion Gap 8 mmol/L (8-16); Aspartate Amino Transferase 24 U/L (14-36); Bilirubin,Total 0.6 mg/dL (0.2-1.3); Blood Urea Nitrogen 7 mg/dL (7-17); Calcium 7.9 mg/dL (8.4-10.2); Carbon Dioxide 23 mmol/L (22-30); Chloride 102 mmol/L (98-107); Estimated CRCL calculation 183 ml/min; Estimated Glomerular Filt Rate > 60; Glucose 96 mg/dL (65-110); Lipase 329 U/L (23-300); Potassium 3.4 mmol/L (3.4-5.0); Sodium 133 mmol/L (137-145)
[2021-10-14] MEDS: ACETAMINOPHEN 325 MG TABLET 650 MG PO ×2 (10:12→21:42)
[2021-10-14] MEDS: POTASSIUM CHLORIDE 20 MEQ PACKET (FOR LIQUID) 40 MEQ PO (10:13)
[2021-10-14] MEDS: ENOXAPARIN 40 MG/0.4 ML SYRINGE SUB-Q (10:13)
--- NOTE | 2021-10-14 11:47 | PM.IMPN ---
Progress Note: A&P Assessment and Plan (1) Acute pancreatitis: Qualifiers: Acute pancreatitis complication: unspecified Pancreatitis type: unspecified pancreatitis type Qualified Code(s): K85.90 - Acute pancreatitis without necrosis or infection, unspecified Code(s): K85.90 - Acute pancreatitis without necrosis or infection, unspecified Status: Acute Assessment and Plan: -Patient without family history of pancreatitis, gallstones or EtOH use presenting with severe right upper quadrant abdominal pain. -she has been seen in consultation by Gastroenterology. Appreciate recommendations -Lipase significantly elevated on arrival close to 32,000. Lipase slowly trending down, 329 today. -RUQ US normal, no evidence of pericholecystic fluid or stones and normal common bile duct. -MRCP performed on 10/12/2021 showed evidence of pancreatitis without choledocholithiasis -White blood cell count improving. LFTs improved with only mild elevation of ALT. -It is noted that patient just started taking Wellbutrin this week, review of literature with a few cases of pancreatitis but uncommon. Possibly the cause of her pancreatitis. Wellbutrin has been discontinued. She will need to follow up with pcp for different anxiety/depression medication options. -She was initially managed with bowel rest and rehydrated with IV fluids. Diet has been advanced and she is tolerating full liquids. Advance to low-fat diet with dinner. IV fluids discontinued as she is tolerating p.o. intake. -Wean pain medications. Adjusted pain medications as followed: Tylenol for pain 1-5, hydrocodone for pain 6-10, 1 mg hydromorphone for breakthrough pain. Discussed limiting IV analgesics to allow for discharge home in the next 1-2 days as diet is advanced. (2) Overweight: Code(s): E66.3 - Overweight Status: Acute Assessment and Plan: Calorie restriction, diet and exercise. (3) Anxiety: Code(s): F41.9 - Anxiety disorder, unspecified Status: Acute Assessment and Plan: Continue Lexapro. Wellbutrin has been discontinued as discussed above. (4) Depression: Code(s): F32.A - Depression, unspecified Status: Acute Assessment and Plan: Continue Lexapro. Wellbutrin discontinued. Follow-up with PCP on discharge for alternative medication regimen. (5) Acne: Code(s): L70.9 - Acne, unspecified Status: Acute Assessment and Plan: Previously on spironolactone. Resume upon discharge. Subjective Date/time seen: 10/14/21 11:47 Interval history: Date of service: 10/14/2021 Hortencia Ruiz is a 31-year-old female with a history of anxiety and depression who is seen in follow-up for pancreatitis. She has a modest amount of pain today, but overall it is improving. Around midnight, she developed pain that she rated as 10/10. Around 5:00 a.m., she noted it was about 8/10 and currently at the time of my evaluation around 10:30 her pain was rated as 5/10. She did she is concerned about when she goes home due to this pain and is afraid she will have to come back to the ER. She is doing okay with full liquids, which she started this morning. She thought maybe she ate a little bit too much of her breakfast this morning and felt some discomfort following but was able to tolerated in general. She said she ordered less for lunch today to avoid having abdominal pain. She would like to try to advance to a low-fat diet this evening. She denies any episodes of nausea or vomiting. She denies fevers or chills but reports she has had some episodes were a she has felt warm and flushed. She has been able to get around okay. She denies dizziness, lightheadedness, or weakness. No urinary symptoms. No diarrhea. No shortness of breath, cough, or chest pain. Review of Systems Review of Systems: All systems reviewed & are unremarkable except as noted in HPI and below Exam Narrative
[2021-10-14 14:42] VITALS: BP 134/74; PULSE 90; RESP 12; TEMP 36.9; O2SAT 98
--- NOTE | 2021-10-14 16:09 | WPDGIPROGNO ---
Progress Note: A&P Assessment and Plan (1) Acute pancreatitis: Qualifiers: Acute pancreatitis complication: unspecified Pancreatitis type: unspecified pancreatitis type Qualified Code(s): K85.90 - Acute pancreatitis without necrosis or infection, unspecified Code(s): K85.90 - Acute pancreatitis without necrosis or infection, unspecified Status: Acute Assessment and Plan: no clear etiology (no heavy etoh use, no GB disease and had normal MRCP, also normal TG level)- ? medication related, advised to discontinue bupropion slowly improving (2) Elevated liver enzymes: Code(s): R74.8 - Abnormal levels of other serum enzymes Status: Acute Assessment and Plan: trending down, from pancreatitis MRCP reviewed normal GB (3) Epigastric pain: Code(s): R10.13 - Epigastric pain Status: Acute Assessment and Plan: improving (4) Nausea and vomiting in adult: Code(s): R11.2 - Nausea with vomiting, unspecified Status: Acute Assessment and Plan: antiemetics prn better (5) Morbid (severe) obesity due to excess calories: Code(s): E66.01 - Morbid (severe) obesity due to excess calories Status: Acute (6) Anxiety: Code(s): F41.9 - Anxiety disorder, unspecified Status: Acute Subjective Date/time seen: 10/14/21 16:09 Interval history: still with pain but better, today only used tylenol, tolerating some diet Review of Systems Review of Systems: All systems reviewed & are unremarkable except as noted in HPI and below Exam Const: General: no acute distress Nutritional Appearance: obese HENMT: General nose exam: Normal nares present Eyes: General: appearance normal, both eyes and all related structures Neck: Neck: supple Resp: Auscultation: clear to auscultation bilaterally Cardio: Rate: regular rate GI: Inspection: non-distended GI Palp: Yes Soft to palpation and Yes Tenderness to palpation present (GI) (mild ttp in epigastric, no rebound) Auscultation: normal bowel sounds Skin: General skin exam: normal color Neuro: Speech: normal speech Motor exam (neuro): Normal motor muscle tone present throughout Extrem: General: normal to inspection Psych: Mental Status: mental status grossly normal Objective Data Vital Signs Vital Signs: Vital Signs - 24 hr 10/13/21 20:00 10/13/21 20:19 10/13/21 22:00 Temperature 97.8 F Pulse Rate 100 100 96 Respiratory Rate 20 20 18 Blood Pressure 128/54 L Pulse Oximetry 94 94 94 10/14/21 06:00 10/14/21 14:42 Temperature 97.9 F 98.4 F Pulse Rate 99 90 Respiratory Rate 18 12 Blood Pressure 119/51 L 134/74 Pulse Oximetry 96 98 Intake/Output Intake/Output: Intake & Output 10/11/21 10/12/21 10/13/21 10/14/21 23:59 23:59 23:59 23:59 Intake Total 3000 3480 3110 1020 Balance 3000 3480 3110 1020 Meds/Results Medications: Active Medications Generic Name Dose Route Start Last Admin Trade Name Freq PRN Reason Stop Dose Admin Acetaminophen 650 mg 10/14/21 09:33 10/14/21 10:12 Acetaminophen 325 Mg Tablet PO 650 mg Q4H PRN Administration Pain rated 1-5 Hydrocodone Bitart/Acetaminophen 1 tab 10/14/21 09:33 Hydrocodone/Acetaminophen (*Crx) 5-325 Mg Tablet PO Q6H PRN Pain Rated 6-10 Enoxaparin Sodium 40 mg 10/14/21 09:00 10/14/21 10:13 Enoxaparin 40 Mg/0.4 Ml Syringe SUB-Q 40 mg DAILY ZONIA Administration Escitalopram Oxalate 10 mg 10/12/21 21:00 10/13/21 20:20 Escitalopram Oxalate 10 Mg Tablet PO 10 mg HS ZONIA Administration Hydromorphone HCl 1 mg 10/14/21 09:35 Hydromorphone Hcl Inj (*Crx) 1 Mg/Ml Syr IV PUSH Q3H PRN Breakthrough Pain Ondansetron HCl 4 mg 10/11/21 06:50 10/11/21 17:29 Ondansetron Inj 4 Mg/2 Ml Vial IV PUSH 4 mg Q4H PRN Administration Nausea Radiology Results: ITS Impressions Abdomen/Pelvis CT 10/11/21 06:39 IMPRESSION: 1. Acute pancreatitis w
[2021-10-14] MEDS: HYDROcodone/acetaminophen (*CRX) 5-325 MG TABLET 1 TAB PO (16:27)
[2021-10-14 20:00] VITALS: PULSE 79; RESP 18; O2SAT 97
[2021-10-14] MEDS: ESCITALOPRAM OXALATE 10 MG TABLET PO (21:43)
[2021-10-14 21:45] VITALS: BP 126/67; PULSE 79; RESP 18; TEMP 36.7; O2SAT 97
[2021-10-15 00:19] VITALS: O2SAT 97
[2021-10-15 05:52] VITALS: BP 125/59; PULSE 84; RESP 18; TEMP 37.1; O2SAT 98
[2021-10-15 07:32] LABS: Hematocrit 34.4 % (37.0-47.0); Hemoglobin 10.9 g/dL (12.0-15.0); Mean Corpuscular HGB Conc 31.7 g/dl (32-36); Mean Corpuscular Hemoglobin 27.5 pg (26-34); Mean Corpuscular Volume 86.9 fl (80-100); Mean Platelet Volume 10.5 fl (7.4-10.4); Platelet Count Result 209 k/mm3 (150-375); Red Blood Count 3.96 M/mm3 (4.2-5.4); Red Cell Distribution Width 14.3 % (11.5-14.5); White Blood Count 10.1 K/mm3 (4.5-10.0)
[2021-10-15 07:48] LABS: Alanine Aminotransferase 51 U/L (4-35); Albumin Level 3.3 g/dL (3.5-5.1); Alkaline Phosphatase 75 U/L (38-126); Amylase 103 U/L (30-110); Anion Gap 7 mmol/L (8-16); Aspartate Amino Transferase 26 U/L (14-36); Bilirubin,Total 0.4 mg/dL (0.2-1.3); Blood Urea Nitrogen 7 mg/dL (7-17); Calcium 8.2 mg/dL (8.4-10.2); Carbon Dioxide 25 mmol/L (22-30); Chloride 102 mmol/L (98-107); Estimated CRCL calculation 183 ml/min; Estimated Glomerular Filt Rate > 60; Glucose 96 mg/dL (65-110); Lipase 323 U/L (23-300); Potassium 3.3 mmol/L (3.4-5.0); Sodium 134 mmol/L (137-145)
[2021-10-15] MEDS: ENOXAPARIN 40 MG/0.4 ML SYRINGE SUB-Q (07:59)
[2021-10-15 10:08] VITALS: PULSE 84; RESP 18; O2SAT 98
[2021-10-15] MEDS: polyethylene glycoL 3350 17 GM POWD.PACK PO (10:32)
--- NOTE | 2021-10-15 11:09 | PC.NURSE ---
On 10/15/21, the student, Shelley Lopez, provided care and completed [employer] documentation on this patient. I have reviewed the student's documentation and agree with the findings.
--- NOTE | 2021-10-15 11:25 | PM.DS ---
DS: Admitting Diagnosis Discharge Date DOS of 10/15/21 at 11:25 Admitting Diagnosis Acute Pancreatitis DS: Discharge Diagnosis Discharge Diagnosis (1) Acute pancreatitis: Qualifiers: Acute pancreatitis complication: unspecified Pancreatitis type: unspecified pancreatitis type Qualified Code(s): K85.90 - Acute pancreatitis without necrosis or infection, unspecified Code(s): K85.90 - Acute pancreatitis without necrosis or infection, unspecified Status: Acute Assessment and Plan: -Patient without family history of pancreatitis, gallstones or EtOH use presenting with severe right upper quadrant abdominal pain. -she has been seen in consultation by Gastroenterology. Appreciate recommendations -Lipase significantly elevated on arrival close to 32,000. Lipase slowly trending down, 329 today. -RUQ US normal, no evidence of pericholecystic fluid or stones and normal common bile duct. -MRCP performed on 10/12/2021 showed evidence of pancreatitis without choledocholithiasis -White blood cell count improving. LFTs improved with only mild elevation of ALT. -It is noted that patient just started taking Wellbutrin this week, review of literature with a few cases of pancreatitis but uncommon. Possibly the cause of her pancreatitis. Wellbutrin has been discontinued. She will need to follow up with pcp for different anxiety/depression medication options. -She was initially managed with bowel rest and rehydrated with IV fluids. Diet has been advanced and she is tolerating full liquids. Advance to low-fat diet with dinner. IV fluids discontinued as she is tolerating p.o. intake. -Wean pain medications. Adjusted pain medications as followed: Tylenol for pain 1-5, hydrocodone for pain 6-10, 1 mg hydromorphone for breakthrough pain. Discussed limiting IV analgesics to allow for discharge home in the next 1-2 days as diet is advanced. Lipase in normal range (2) Overweight: Code(s): E66.3 - Overweight Status: Acute Assessment and Plan: Calorie restriction, diet and exercise. (3) Anxiety: Code(s): F41.9 - Anxiety disorder, unspecified Status: Acute Assessment and Plan: Continue Lexapro. Wellbutrin has been discontinued as discussed above. (4) Depression: Code(s): F32.A - Depression, unspecified Status: Acute Assessment and Plan: Continue Lexapro. Wellbutrin discontinued. Follow-up with PCP on discharge for alternative medication regimen. (5) Acne: Code(s): L70.9 - Acne, unspecified Status: Acute Assessment and Plan: Previously on spironolactone. Resume upon discharge. DS: Summary Hospital Course Hospital Course: Patient is 31-year-old female with no significant past medical history who was evaluated in presented to the emergency room with abdominal pain. Patient was experiencing nausea vomiting with food. Lipase upon arrival was 32,000. Lipase has been continuously trending down and is currently 323. Patient had significant workup for right upper quadrant ultrasound which showed no stones or fluid within normal bile duct. Patient also had a MRCP which showed pancreatitis without choledocholithiasis. White blood cell count is 10.1 today. LFTs have been improved. GI was consulted and saw the patient. No etiology was determined however it was noted that this all started with patient being on Wellbutrin. GI is recommending patient discontinue Wellbutrin. Throughout her stay patient was put on IV fluids and her diet was slowly advanced. Patient was able to tolerate a low-fat diet for dinner. Pain control has been another issue. Patient was started on Dilaudid and has been weaned off the lot in to Tylenol. Patient is ready to go. She is complaining of constipation today which she was given MiraLax at that time and was able to have a BM today. Labs are within normal limits today and his stated before lipase is 323 today.
[2021-10-15 12:19] LABS: Basophils Absolute Auto 0.1 K/mm3 (0.0-0.1); Basophils Percent Auto 0.5 % (0.2-1.2); Eosinophils Absolute Auto 0.3 K/mm3 (0-0.3); Eosinophils Percent Auto 2.5 % (0-4.4); Hematocrit 34.8 % (37.0-47.0); Hemoglobin 10.9 g/dL (12.0-15.0); Immature Granulocyte Absolute 0.07 K/mm3 (0.00-0.031); Immature Granulocyte Percent A 0.7 % (0-0.5); Lymphocytes Absolute Auto 1.44 K/mm3 (0.9-3.2); Lymphocytes Percent Auto 13.9 % (18.3-44.2); Mean Corpuscular HGB Conc 31.3 g/dl (32-36); Mean Corpuscular Hemoglobin 27.4 pg (26-34); Mean Corpuscular Volume 87.4 fl (80-100); Monocytes Absolute Auto 0.8 K/mm3 (0.1-0.6); Monocytes Percent Auto 7.6 % (2.6-8.5); Neutrophils Absolute Auto 7.7 K/mm3 (1.3-6.7); Neutrophils Percent Auto 74.8 % (45.5-73.1); Platelet Count Result 221 k/mm3 (150-375); Red Blood Count 3.98 M/mm3 (4.2-5.4); Red Cell Distribution Width 14.5 % (11.5-14.5); White Blood Count 10.3 K/mm3 (4.5-10.0)
[2021-10-15] MEDS: POTASSIUM CHLORIDE 20 MEQ TABLET 40 MEQ PO (12:48)
--- NOTE | 2021-10-15 13:17 | WPDGIPROGNO ---
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 fat diet she can follow-up office in 4-6 weeks (2) Elevated liver enzymes: Code(s): R74.8 - Abnormal levels of other serum enzymes Status: Acute Assessment and Plan: trending down (3) Morbid (severe) obesity due to excess calories: Code(s): E66.01 - Morbid (severe) obesity due to excess calories Status: Acute (4) Nausea and vomiting in adult: Code(s): R11.2 - Nausea with vomiting, unspecified Status: Acute Assessment and Plan: resolved Subjective Date/time seen: 10/15/21 13:17 Interval history: doing much better today and ready to go home Review of Systems Review of Systems: All systems reviewed & are unremarkable except as noted in HPI and below Exam Const: General: comfortable and no acute distress Other: obse HENMT: General nose exam: Normal nares present Eyes: General: appearance normal, both eyes and all related structures Neck: Neck: no JVD Resp: Auscultation: clear to auscultation bilaterally Cardio: Rate: regular rate Rhythm: regular rhythm GI: Inspection: non-distended GI Palp: Yes Soft to palpation and No Guarding due to palpation present (GI) Auscultation: normal bowel sounds Skin: General skin exam: normal color Neuro: Speech: normal speech Motor exam (neuro): Normal motor muscle tone present throughout Extrem: General: normal to inspection Psych: Mental Status: mental status grossly normal Objective Data Vital Signs Vital Signs: Vital Signs - 24 hr 10/14/21 14:42 10/14/21 20:00 10/14/21 21:45 Temperature 98.4 F 98.1 F Pulse Rate 90 79 79 Respiratory Rate 12 18 18 Blood Pressure 134/74 126/67 Pulse Oximetry 98 97 97 10/15/21 00:19 10/15/21 05:52 10/15/21 10:08 Temperature 98.7 F Pulse Rate 84 84 Respiratory Rate 18 18 Blood Pressure 125/59 L Pulse Oximetry 97 98 98 Intake/Output Intake/Output: Intake & Output 10/12/21 10/13/21 10/14/21 10/15/21 23:59 23:59 23:59 23:59 Intake Total 3480 3110 1810 970 Balance 3480 3110 1810 970 Meds/Results Medications: Active Medications Generic Name Dose Route Start Last Admin Trade Name Freq PRN Reason Stop Dose Admin Acetaminophen 650 mg 10/14/21 09:33 10/14/21 21:42 Acetaminophen 325 Mg Tablet PO 650 mg Q4H PRN Administration Pain rated 1-5 Hydrocodone Bitart/Acetaminophen 1 tab 10/14/21 09:33 10/14/21 16:27 Hydrocodone/Acetaminophen (*Crx) 5-325 Mg Tablet PO 1 tab Q6H PRN Administration Pain Rated 6-10 Enoxaparin Sodium 40 mg 10/14/21 09:00 10/15/21 07:59 Enoxaparin 40 Mg/0.4 Ml Syringe SUB-Q 40 mg DAILY ZONIA Administration Escitalopram Oxalate 10 mg 10/12/21 21:00 10/14/21 21:43 Escitalopram Oxalate 10 Mg Tablet PO 10 mg HS ZONIA Administration Hydromorphone HCl 1 mg 10/14/21 09:35 Hydromorphone Hcl Inj (*Crx) 1 Mg/Ml Syr IV PUSH Q3H PRN Breakthrough Pain Ondansetron HCl 4 mg 10/11/21 06:50 10/11/21 17:29 Ondansetron Inj 4 Mg/2 Ml Vial IV PUSH 4 mg Q4H PRN Administration Nausea Polyethylene Glycol 17 gm 10/15/21 10:30 10/15/21 10:32 Polyethylene Glycol 3350 17 Gm Powd.Pack PO 17 gm QAM PRN Administration Constipation Radiology Results: ITS Impressions Abdomen/Pelvis CT 10/11/21 06:39 IMPRESSION: 1. Acute pancreatitis with moderate peripancreatic fluid extending into the paracolic gutters. 2: 3 cm left adnexal cyst, likely ovarian. Upper Quadrant Ultrasound 10/11
== END 2021-10-15 13:30 | disposition home or self-care (01) | DRG 440 ==
LOC: ANHED 06:55 → ANH3MEDSUR 11:17
PROVIDERS: Internal Medicine; Internal Medicine Gastroenterology; Physician Assistant; Admitting Provider Internal Medicine; Emergency Provider Emergency Medicine; PCP Internal Medicine; Visit Provider Nurse Practitioner
DX: K85.90 Acute pancreatitis without necrosis or infection, unspecified (principal); F41.9 Anxiety disorder, unspecified; F32.A Depression, unspecified; L70.9 Acne, unspecified; E66.3 Overweight; R74.8 Abnormal levels of other serum enzymes; Z79.899 Other long term (current) drug therapy; Z88.0 Allergy status to penicillin
CPT/HCPCS: 36415; 74177; 74183; 76376; 76705; 80048; 80053; 80074; 81001; 81025; 82150; 83036; 83690; 84478; 85025; 85027; 96361; 96374; 96375; 96376; 99285; A9270; A9577; J1170; J1650; J2270; J2405; J7030; Q9967